=== PATIENT | female | born 1940 | race Caucasian/White ===

== ENCOUNTER 2019-02-11 18:31 | Emergency (ER) | payer OTHER ==
[~2019-02-11] VITALS: Ht 127 cm; Wt 79.8 kg
[2019-02-11 18:41] VITALS: BP 142/102
--- NOTE | 2019-02-11 18:56 | NUR ---
PT BIB FAMILY MEMBER TO ER WITH c/o left ankle pain s/p fell x yesterday. PER FAMILY MEMBER, PT TWISTED HER ANKLE WHILE BOARDING CAR YESTERDAY, FELL ON THE GROUND. NO LOC OBSERVED. PT HAS SWOLLEN ANKLE, HAS BRUSIE AROUND THE LF FOOT. PAIN 10/10 TO TOUCH AND INCREASED PAIN WHILE WALKING. CMS PRESENT IN HER LOWER FOOT DIGITS. DENIES ANY FEVER, CHILLS. X-RAY ATHE BEDSIDE, TOOK THE X-RAY. PT WAS SEEN AT THE CLINIC TODAY, REFERED TO ER .FAMILY AT THE BEDSIDE. ER MD TO SEE THE PT. MED HX: HTN, DM
--- NOTE | 2019-02-11 19:13 | NUR ---
REPORT GIVEN TO PM RN AT BEDSIDE. PT SATBLE.
--- NOTE | 2019-02-11 19:15 | NUR ---
PT RESTING IN BED WITH FAMILY AT BEDSIDE. VSS. WILL CONTINUE TO MONITOR.
[2019-02-11] MEDS ORDERED: KETOROLAC 60 MG/2 ML VIAL IM ONE (20:00)
--- NOTE | 2019-02-11 20:15 | NUR ---
XRAY AT BEDSIDE
--- NOTE | 2019-02-11 20:25 | NUR ---
PT EXPRESSES THAT THE PAIN LEVEL DECREASED FROM 8/10 TO 6/10
--- NOTE | 2019-02-11 21:10 | NUR ---
EMT PROVIDED SPLINT TO LEFT ANKLE. EDUCATION PROVIDED ON HOW TO USE CRUTCHES
--- NOTE | 2019-02-11 21:25 | NUR ---
Patient discharged with v/s stable. Written and verbal after care instructions given and explained. Patient alert, oriented and verbalized understanding of instructions. Ambulatory with crutches. All questions addressed prior to discharge. ID band removed. Patient advised to follow up with PMD. Rx of Motrin and Tramadol was given. Patient educated on indication of medication including possible reaction and side effects. Opportunity to ask questions provided and answered.
[2019-02-11 21:35] VITALS: BP 142/67
== END 2019-02-11 21:25 | disposition home or self-care (01) ==
LOC: MED 18:31
DX: S82.65XA Nondisplaced fracture of lateral malleolus of left fibula, initial encounter for closed fracture (principal); I10 Essential (primary) hypertension; E11.9 Type 2 diabetes mellitus without complications; W18.39XA Other fall on same level, initial encounter; Y93.89 Activity, other specified; Y92.89 Other specified places as the place of occurrence of the external cause; Y99.8 Other external cause status
CPT/HCPCS: 29515; 73562; 73610; 96372; 99283; J1885; Q0092

== ENCOUNTER 2019-02-18 13:39 | Emergency (ER) | payer OTHER ==
[~2019-02-18] VITALS: Ht 157.5 cm; Wt 70.3 kg
[2019-02-18 13:48] VITALS: BP 112/65
--- NOTE | 2019-02-18 14:03 | NUR ---
PT W/C ASSISTED TO BED 11.
--- NOTE | 2019-02-18 14:14 | NUR ---
PT BIB FAMILY FOR LEFT LOWER LEG PAIN. PT FELL RECENTLY AND WAS SEEN IN ER AND DIAGNOSED WITH ANKLE FXR TO LEFT ANKLE. PT HAS SPLINT IN PLACE , PLACED HERE IN ER FROM LAST WEEK. BRUISING NOTED TO LOWER LEG MORE PROMINENT TO LEFT FOOT, +EDEMA , +CMS BUT WITH PAIN. PT LAYING IN BED, POSITIONED TO COMFORT, FAMILY AT BEDSIDE.
--- NOTE | 2019-02-18 15:46 | NUR ---
XRAY AT [facility]
--- NOTE | 2019-02-18 16:09 | NUR ---
PT ASSISTED TO RESTROOM
--- NOTE | 2019-02-18 16:46 | NUR ---
DR GASPAR AT BEDSIDE, USING OUTREACH LIAISON BLUE PHONE #[phone]
--- NOTE | 2019-02-18 17:36 | NUR ---
US AT BEDSIDE
--- NOTE | 2019-02-18 17:42 | NUR ---
XRAY AT BEDSIDE
--- NOTE | 2019-02-18 19:18 | NUR ---
dr killian at bedside, using street supervisor [phone]
--- NOTE | 2019-02-18 19:35 | NUR ---
MARIE EMT AT BEDSIDE FOR SPLINT
[2019-02-18 19:41] VITALS: BP 134/82
--- NOTE | 2019-02-18 19:41 | NUR ---
Patient discharged with v/s stable. Written and verbal after care instructions given and explained IN [facility] VIA BLUE PHONE WITH DR GASPAR. Patient alert, oriented and verbalized understanding of instructions. WHEELCHAIRED TO CAR. All questions addressed prior to discharge. ID band removed. Patient advised to follow up with PMD. Rx of KEFLEX given. Patient educated on indication of medication including possible reaction and side effects. Opportunity to ask questions provided and answered. PT INSTRUCTED TO FOLLOW UP IN 2 DAYS WITH [facility] FOR RE-CHECK PT GIVEN ORTHO FOLLOW UP INSTRUCTIONS
== END 2019-02-18 19:41 | disposition home or self-care (01) ==
LOC: MED 13:39
DX: L03.116 Cellulitis of left lower limb (principal); E11.9 Type 2 diabetes mellitus without complications; I10 Essential (primary) hypertension
CPT/HCPCS: 29515; 73502; 73610; 93971; 99284; Q0092

== ENCOUNTER 2022-06-21 00:56 | Emergency (ER) | payer OTHER ==
[~2022-06-21] VITALS: Ht 152.4 cm; Wt 72.6 kg
[2022-06-21 01:15] VITALS: BP 132/80
--- NOTE | 2022-06-21 01:18 | NUR ---
TO LOBBY A/W BED AMBULATORY
--- NOTE | 2022-06-21 02:13 | NUR ---
SEEN AND EXAMINED BY JOANNA
[2022-06-21] MEDS ORDERED: METH4TAB27 PO (02:19)
[2022-06-21] MEDS ORDERED: AMOX-999 PO (02:19)
[2022-06-21 02:20] VITALS: BP 132/80
--- NOTE | 2022-06-21 02:20 | NUR ---
Patient discharged with v/s stable. Written and verbal after care instructions given and explained. Patient alert, oriented and verbalized understanding of instructions. Ambulatory with steady gait. All questions addressed prior to discharge. ID band removed. Patient advised to follow up with PMD. Rx of AUGMENTIN, METHYLPRED given. Patient educated on indication of medication including possible reaction and side effects. Opportunity to ask questions provided and answered.
== END 2022-06-21 02:20 | disposition home or self-care (01) ==
LOC: MED 00:56
DX: J20.9 Acute bronchitis, unspecified (principal); E11.9 Type 2 diabetes mellitus without complications; I10 Essential (primary) hypertension; Z79.899 Other long term (current) drug therapy
CPT/HCPCS: 71045; 99283

== ENCOUNTER 2023-05-19 21:30 | Emergency (ER) | payer OTHER ==
[~2023-05-19] VITALS: Ht 152.4 cm; Wt 72.6 kg
[~2023-05-19 21:30] MED LIST: AMOX-999 PO; METH4TAB27 PO
[2023-05-19 22:05] VITALS: BP 172/78; PULSE 66; RESP 16; TEMP 98.3; O2SAT 95
[2023-05-19] MEDS ORDERED: KETOROLAC 60 MG/2 ML VIAL IM ONE (23:00)
[2023-05-19 23:13] LABS: APPEARANCE,URINE CLEAR (CLEAR); BILIRUBIN,URINE NEGATIVE (NEGATIVE); BLOOD, URINE 1+ (NEGATIVE); COLOR,URINE YELLOW (YELLOW); LEUKOCYTE ESTERASE ,URINE 1+ (NEGATIVE); NITRITE, URINE NEGATIVE (NEGATIVE); PROTEIN,URINE NEGATIVE (NEGATIVE); UGLUCOSE NEGATIVE (NEGATIVE); UROBILINOGEN,URINE 0.2 EU/dL (0.2 - 1)
[2023-05-19 23:21] LABS: BACTERIA,URINE 10-30 (MOD) /HPF (None Seen); MUCUS,URINE 1+ /LPF (None Seen); SQUAMOUS EPITHELIAL CELL,UR 0-3 (FEW) /LPF (0-3 (FEW))
[2023-05-20] MEDS ORDERED: CIPR500T4 PO (01:15)
[2023-05-20] MEDS ORDERED: NAPR-54 PO (01:15)
[2023-05-20 01:21] VITALS: BP 172/78; PULSE 66; RESP 16; TEMP 98.3; O2SAT 95
== END 2023-05-20 01:21 | disposition home or self-care (01) ==
LOC: MED 21:30
DX: M13.852 Other specified arthritis, left hip (principal); N39.0 Urinary tract infection, site not specified; Z79.899 Other long term (current) drug therapy
CPT/HCPCS: 73502; 81001; 87086; 96372; 99284; J1885; Q0092